=== PATIENT | male | born 1995 | race Caucasian/White ===

== ENCOUNTER → 2016-03-02 | Emergency (ER) | payer BC ==
[~2016-03-02] VITALS: Ht 177.8 cm; Wt 65.9 kg
[2016-03-02 17:40] VITALS: TEMP 98.7
[2016-03-02 18:26] VITALS: BP 118/74; PULSE 101
== END | disposition home or self-care (01) ==
LOC: COL.ER 17:39
DX: R19.7 Diarrhea, unspecified (principal)